=== PATIENT | female | born 1990 | race Caucasian/White ===

== ENCOUNTER 2023-09-16 08:23 | Outpatient (RCR) | payer OTHER, SELFPAY ==
[2023-09-16 08:40] VITALS: BP 116/57
[2023-09-16] MEDS: CORTROSYN 1 MG IV (09:06)
[2023-09-16 10:36] LABS: ACTH Stim Cortisol 30 Min 24.1 ug/dl
[2023-09-16 10:37] LABS: ACTH Stim Cortisol 0 Min 18.3 ug/dl
[2023-09-16 12:02] LABS: ACTH Stim Cortisol 60 Min 24.5 ug/dl
== END 2023-10-02 23:59 | disposition home or self-care (01) ==
LOC: OID 08:23
PROVIDERS: ATTENDING PHYSICIAN Physician Assistant; FAMILY PHYSICIAN Nurse Practitioner
DX: E27.40 Unspecified adrenocortical insufficiency (principal)
CPT/HCPCS: 36415; 82533; 96374

== ENCOUNTER → 2024-01-11 10:17 | Outpatient (REF) | payer OTHER, SELFPAY | LOC: HWRAD 10:17 | PROVIDERS: ATTENDING PHYSICIAN Physician Assistant; FAMILY PHYSICIAN Nurse Practitioner | DX: E04.9 Nontoxic goiter, unspecified (principal) | CPT/HCPCS: 76536 ==